=== PATIENT | male | born 1975 | race Caucasian/White ===

== ENCOUNTER 2024-03-27 09:14 | Day surgery (SDC) | payer BC ==
--- NOTE | 2024-03-26 10:11 | HP ---
HISTORY OF PRESENT ILLNESS: The patient is a 48-year-old female, presents with cholelithiasis. She has a lot of pain in her right upper abdomen after food. She has nausea and vomiting with this. Has been dealing with it for the past 3 or 4 months every day now. She also reports diarrhea. PAST MEDICAL HISTORY: Hypertension, hyperlipidemia, reflux, diabetes. HOME MEDICATIONS: Pantoprazole, Atorvastatin, lisinopril, glyburide. ALLERGIES: No medicines. PAST SURGICAL HISTORY: None. SOCIAL HISTORY: Occasional alcohol. FAMILY HISTORY: None. REVIEW OF SYSTEMS: CONSTITUTIONAL: Denies fever or chills. CHEST: Denies shortness of breath. CARDIOVASCULAR: Denies chest pain. ABDOMEN: Reports upper abdominal pain. PHYSICAL EXAMINATION: GENERAL: No acute distress. CARDIOVASCULAR: Regular rate and rhythm. RESPIRATORY: Nonlabored. No shortness of breath. ABDOMEN: Soft. IMPRESSION: Cholelithiasis. PLAN: Laparoscopic cholecystectomy with Dr. William Wahl. This report was dictated for Dr. Wahl by Jackelin Morel NP.
[2024-03-27] MEDS ORDERED: MEFOXIN 2 GM PREMIX** 2 GM/50 ML ML IV ONE (09:36)
[2024-03-27] MEDS: MEFOXIN 2 GM PREMIX** 2 GM/50 ML ML IV SCH (09:36)
[2024-03-27] MEDS ORDERED: Lactated Ringers 1,000 ML IV ONE (09:36)
[2024-03-27] MEDS: Lactated Ringers 1,000 ML IV SCH (09:37)
[2024-03-27 09:42] VITALS: RESP 16
[2024-03-27] MEDS ORDERED: Sodium Chloride 0.9% 1000 ML 1,000 ML ONE (11:17)
[2024-03-27] MEDS ORDERED: Sensorcaine 0.25% 10 ML ONE (11:17)
[2024-03-27] MEDS ORDERED: TORAdol 30 mg Injection ONE (11:19)
[2024-03-27] MEDS ORDERED: DIPRIVAN 200 MG/20 ML IV ONE (11:19)
[2024-03-27] MEDS ORDERED: BRIDION 200MG/2ML IV ONE (11:19)
[2024-03-27] MEDS ORDERED: Zofran 4 MG/2 ML VIAL ONE ×2 (11:19→12:24)
[2024-03-27] MEDS ORDERED: SUBLIMAZE 100 MCG/2 ML ONE ×2 (11:19→12:36)
[2024-03-27] MEDS ORDERED: ROCURONIUM BROMIDE IV ONE (11:19)
[2024-03-27] MEDS ORDERED: Decadron 4 MG INJ ONE (11:19)
[2024-03-27] MEDS ORDERED: Xylocaine-Mpf 2% 5 Ml Vial ONE (11:19)
[2024-03-27] MEDS ORDERED: Hydromorphone 1 mg/ml Injection ONE (12:45)
[2024-03-27 13:27] VITALS: BP 118/90; PULSE 63; TEMP 96.5; O2SAT 98
--- NOTE | 2024-03-28 11:25 | OP ---
SURGERY DATE/TIME: 03/27/2024 [id number] PREOPERATIVE DIAGNOSIS: Symptomatic stone disease. POSTOPERATIVE DIAGNOSIS: Symptomatic stone disease. PROCEDURE: Laparoscopic cholecystectomy. SURGEON: William Wahl MD. ANESTHESIA: General. COMPLICATIONS: None. CONDITION: Stable. DESCRIPTION OF PROCEDURE AND FINDINGS: Patient was taken to surgery. General anesthetic. Routine prep and drape. Four 5 ports. Good visualization. Gallbladder was a little large. There was an impacted stone in the infundibulum. Cystic duct defined, triply clipped. Cystic artery triply clipped. Gallbladder rolled out of the gallbladder fossa. Gallbladder delivered through the epigastric port. It was necessary to widen this as the stone was nearly an inch. It was able to be extracted. Fascia closed with 2 sutures of 0 Vicryl. Skin closed with 4-0 Vicryl. CO2 exsufflated. Lateral port sites closed with 4-0 Vicryl. Patient tolerated the procedure satisfactorily.
== END 2024-03-27 13:40 | disposition home or self-care (01) ==
LOC: EDSEX 09:14 → SDC 09:14
PROVIDERS: ATTEND Surgery
DX: K80.00 Calculus of gallbladder with acute cholecystitis without obstruction (principal); E11.9 Type 2 diabetes mellitus without complications
CPT/HCPCS: 82947; J0694; J1100; J1171; J1885; J2405; J2704; J3010